=== PATIENT | male | born 1950 | race African-American/Black ===

== ENCOUNTER 2017-09-25 20:03 | Emergency (ER) | payer MEDICARE, MEDICAID ==
[2017-09-25] MEDS ORDERED: INSULIN,ISOP(HUMAN(NPH) 100 UNITS/ML PEN SUBCU ONE (21:22)
[2017-09-25] MEDS ORDERED: INSULIN LISPRO 100 UNITS/ML PEN SUBCU ONE (21:23)
[2017-09-25] MEDS ORDERED: SODIUM CHLORIDE 0.9% 1000ML 1,000 ML IVS ONE (21:51)
[2017-09-25] MEDS ORDERED: MEROPENEM 1 GM in SODIUM CHL 0.9% 50ML MIN-BAG+ 50 ML IVPB ONE (21:51)
[2017-09-25] MEDS ORDERED: MEROPENEM 1 GM VIAL IVPB ONE (21:53)
[2017-09-25] MEDS ORDERED: SODIUM CHL 0.9% 50ML MIN-BAG+ 50 ML IVPB ONE (21:53)
--- NOTE | 2017-09-25 23:33 | CT ---
EXAM DESCRIPTION: Abdoment/Pelvis w/o Contrast (accession [id number]), Chest w/o Contrast (accession [id number]) CLINICAL HISTORY: 67 years Male s/p code, wbc 20k, hypoventilation COMPARISON: None. TECHNIQUE: Contiguous axial images obtained through the chest, abdomen and pelvis without IV contrast. Reformatted images obtained. This exam was performed according to our department optimization program which includes automated exposure control, adjustment of the mA and/or kv according to patient size and/or use of iterative reconstruction technique. FINDINGS: Chest: The thoracic aorta is calcified and mildly elongated. Calcification is present in the coronary vessels. No evidence of pericardial fluid. No significant anterior mediastinal hematoma. There are groundglass densities bilaterally with atelectasis in the lower lobes and in the base of the right middle lobe. Question small effusions. Study is limited by motion. No significant thoracic adenopathy. Tracheostomy tube in place. No displaced rib fracture noted. No sternal or manubrial fracture. Multilevel degenerative change in the spine. Previous fusion in the cervicothoracic spine. Abdomen pelvis: The liver appears unremarkable. The spleen and pancreas appear unremarkable. No adrenal masses. There are nonobstructing renal calculi on the right. Incompletely distended urinary bladder. No hydronephrosis or obstructive uropathy. The gallbladder is present with numerous calculi noted. No aneurysmal dilatation of the aorta. No evidence of small bowel obstruction. There is a large volume of fecal material in the colon particularly in the rectosigmoid suggesting impaction. No evidence to suggest perforation. Stomach is also mildly distended. Sigmoid measures 12 cm cm. No free pelvic fluid. IMPRESSION: Patchy groundglass densities bilaterally with basilar atelectasis and probable small effusions. Findings may reflect edema or aspiration. Pneumonia is not excluded. No rib fracture or pneumothorax noted Vascular calcification Cholelithiasis Findings suggesting constipation and fecal impaction with significant distention of the sigmoid colon measuring 12 cm. Electronically signed by: Neli Ward MD 09/25/2017 11:32 PM CDT
[2017-09-25] MEDS ORDERED: HEPARIN SODIUM (PORCINE) 5,000 U/ML VIAL IV ONE (23:40)
--- NOTE | 2017-09-25 23:50 | CT ---
Prescribed normal brain EXAM: NONCONTRAST BRAIN CT EXAMINATION. CLINICAL INDICATION: Cardiac arrest. Patient intubated. COMPARISON: None. TECHNIQUE: Using low dose helical CT technique, thin section axial images were performed through the brain without the administration of intravenous or subarachnoid contrast material. FINDINGS: Brain volume is normal. No diffuse brain swelling or brain herniation. No hydrocephalus. No subdural or epidural hematomas. No large subacute brain infarction. No parenchymal brain hemorrhage or evidence of intracranial mass lesion. The brainstem and cerebellum are normal. Cerebral white matter is grossly normal. Normal for age bilateral pallidal calcification. Caudate heads, lentiform nuclei, thalami and internal capsules are normal. Bones of the skull and skull base are normal. Opacification of the middle ears and mastoid air cells. The partially visualized paranasal sinuses are clear. IMPRESSION: 1. Symmetric opacification of the middle ears and mastoid air cells. Otherwise, normal for age noncontrast brain CT examination. This exam was performed according to our departmental dose-optimization program, which includes automated exposure control, adjustment of the mA and/or kV according to patient size and/or use of iterative reconstruction technique. Electronically signed by: Jacobo Barrera MD 09/25/2017 11:49 PM CDT
[2017-09-25 23:56] VITALS: O2SAT 100
--- NOTE | 2017-09-25 23:58 | ED.PDOC ---
History of Present Illness - General Chief Complaint: Neuro Symptoms/Deficits Stated Complaint: unresponsive FIELD ARTILL[facility] CANNONEER Time Seen by Provider: 09/25/17 20:10 Source: patient Exam Limitations: no limitations - History of Present Illness Initial Comments: The patient is a 67-year-old -[place] male presented to the emergency room by EMS after having undergone CPR for a cardiorespiratory arrest. The patient is a resident of a long-term ventilator care facility. The patient has actually been off of the ventilator simply on a trach collar for the last couple of months apparently. The patient has a history of a Chiari malformation giving him quadriplegia. He is normally alert and oriented and able to mouth what he wants to communicate. He's also has a history of insulin- dependent diabetes and chronic anemia. He does also have a history of chronic decubitus ulcers. Apparently staff coming to give tube feeds found him unresponsive, not breathing and without a pulse. Chest compressions were started and the patient was started being bagged through his tracheostomy. By the time EMS arrived the patient was alert and interacting. His oxygen saturations were in the 90s. Initially when [facility] staff had gotten a pulse back, his initial oxygen saturations were in the 70s. He was not on a heart monitor. No drugs or electrical shocks were delivered. The patient did not remember the event. EMS brought the patient o the emergency room. For the first 30-40 minutes his end-tidal CO2's were up in the 70s and 80s. We did give the patient trial of CPAP which did not improve the situation. Initially also his respiratory rates were in the 30s but his breaths were very shallow only giving 100 or 200 cc per breath when unsupported. Ultimately we did put the patient back on ventilator settings which did allow his work of breathing to decrease significantly, and his endtidals have fallen into the 40s. The patient is currently resting comfortably without any apparent discomfort. Initial ABG obtained approximately 40 minutes after arrival here secondary to difficulty obtaining it, was actually a mixed venous gas showing a pH of 7.18. PaCO2 was 75. We have had no difficulty oxygenating him since his arrival here. The patient is easily arousable. Again he does not remember the events. He does not remember any significant symptoms prior. He was in normal sinus rhythm for EMS and has remained so throughout his stay here. Timing/Duration: unsure Severity: severe Improving Factors: nothing Worsening Factors: nothing Allergies/Adverse Reactions: Allergies Codeine Allergy (Verified 09/25/17 20:27) Flu Virus Vaccine Allergy (Verified 09/25/17 20:27) Home Medications: Ambulatory Orders Acetylcysteine 10 % IN 09/25/17 Ascorbic Acid [Vitamin C] 250 mg PO 09/25/17 Aspirin [Aspirin Childrens] 09/25/17 Atorvastatin Calcium [Lipitor] 40 mg PO 09/25/17 Atropine Sulfate (Ophthalmic) [Atropine Sulfate] 09/25/17 Balsam [place]-Trade Oil [Venelex] 09/25/17 Brimonidine 0.2% Ophth [Alphagan P] 1 drop BOTH_EYES 09/25/17 Cranberry-Vitamin C-Inulin [Uti-Stat] 1 liq PO 09/25/17 Cyanocobalamin [B12] 1,000 mcg PO 09/25/17 Docusate Sodium 100 mg PO 09/25/17 Famotidine 10 mg PO 09/25/17 Ferrous Sulfate [Iron High-Potency] 325 mg PO 09/25/17 Folic Acid 1 mg PO 09/25/17 Insulin NPH (Human) (Isophane) [Humulin N] 120 unit SC 09/25/17 Insulin Regular (Human) [Humulin R] 09/25/17 Ipratropium-Albuterol [Ipratropium [place]/Albut] 09/25/17 Lactobacillus Tab [Lactinex] 1 PO 09/25/17 Miconazole Nitrate (Topical) [Tineacide] 2 % EX 09/25/17 Pancrelipase (Lipase-Protease- [Creon] 1 cap PO 09/25/17 Polyethylene Glycol 3350 [Miralax] 09/25/17 Promethazine HCl 25 mg PO 09/25/17 SILVER SULFADIAZINE 1 % 25gm [Silvadene Cream 25gm] 09/25/17 Scopolamine Patch 1.5MG 09/25/17 Simethicone [Gas-X] 80 mg PO 09/25/17 Tolterodine Tartrate [Detrol LA] 2 mg PO 09/25/17 Tramadol HCl 50 mg PO 09/25/17 Travoprost [Travatan Z] 0.004 % OP 09/25/17 Review of Systems - Review of Systems Review of Systems: 09/26/17 00:16 eview of systems is somewhat limited secondary to difficulty with communication , but are also for new or changing symptoms only. 09/26/17 00:17 Constitutional: States: no symptoms reported EENTM: States: no symptoms reported Respiratory: States: no symptoms reported Cardiology: States: no symptoms reported Gastrointestinal/Abdominal: States: no symptoms reported Genitourinary: States: no symptoms reported Musculoskeletal: States: no symptoms reported Skin: States: no symptoms reported Neurological: States: no symptoms reported Endocrine: States: no symptoms reported All other Systems: No Change from Baseline Past Medical History (General) - Patient Medical History Hx Stroke: Yes Hx of COPD: Yes Hx Diabetes: Yes Hx Gastroesophageal Reflux: Yes - Vaccination History Hx Influenza Vaccination: No - allergic to - Activities of Daily Living Alf/Assisted Living (if applicable):: [facility] - Triage Comment ED Triage Comment: pt responds upon arrival, eyes open Family Medical History - Family History Father Family History: Unknown Physical Exam - Physical Exam General Appearance: Alert, Other - the patient appears uncomfortable initially showing a moderate increasedwork of breathing Eye Exam: bilateral normal Ears, Nose, Throat: normal pharynx, other - he does appear to hear fairly normally Neck: full range of motion, supple - tracheostomy is in place Respiratory: other - the patient is initially to Make with shallow breathing. He does have bilateral bibasilar rales as would be expected for his condition Cardiovascular/Chest: regular rate, rhythm, no edema Peripheral Pulses: radial,right: 1+, radial,left: 1+, dorsalis pedis,right: 1+, dorsalis pedis,left: 1+ Gastrointestinal/Abdominal: soft, other - obese. G-tube is in place. Rectal Exam: other - the patient has had several episodes of green diarrhea since his arrival here. He also has several posterior decubitus ulcers of various stages. Back Exam: other - see above Extremity: other - he patient has contractures in all 4 extremities. He does still have some muscle control of his proximal arms. There is fairly extensive callus buildup. No significant edema. Neurologic: shake cutter II-XII nml as tested, alert, normal mood/affect Skin Exam: normal color - extensive callus buildup and several posterior decubitus ulcers. Color is fair otherwise. Comments: Vital Signs - 24 hr 09/25/17 09/25/17 09/25/17 20:14 22:06 23:00 Temperature 96.8 F L Pulse Rate [ 110 H 84 87 Right] Respiratory 25 H 14 Rate Blood Pressure 111/69 123/62 119/58 [Right Arm] O2 Sat by Pulse 99 100 99 Oximetry 09/25/17 23:30 Temperature 97.8 F Pulse Rate [ 80 Right] Respiratory Rate Blood Pressure 143/73 [Right Arm] O2 Sat by Pulse 100 Oximetry Progress - Progress Progress: 09/26/17 00:22 the patient is a 67-year-old Afro-[place] male presenting to the emergency room by EMS after a cardiac arrest and respiratory failure. The patient does have several problems including a significant catheter associated urinary tract infection, likely scattered pulmonary infiltrates consistent with a mild pneumonia as well as a significant mixed acidosis along with possible bilateral inner ear and mastoid process infections which may or may not be chronic. additionally the patient may have had a mild myocardial infarction. the primary issue with the patient given his clinical evaluation here I believe however his hypoventilation. the events of today, lab work and EKG do appear to be consistent with the patient suffering some hypoxia and hypoventilation for a subacute period of time. He will need to have cardiac enzymes repeated. Based on EKG I do not think the origin of his problem is a focal coronary disease however more likely global cardiac ischemia related to hypoxia. For this reason he is receiving a dose of IV heparin. I'm not giving additional Plavix and is not giving any lytics at this time. clinically he is resting comfortably currently. I do not see that his ST segment changes technically meet the criteria for an ST elevation myocardial infarction at this time, by any criteria that I can currently find. He will need further lab work EKG and possibly a cardiology consult. He does have an elevated d-dimer however, he did just get chest compressions. He does have an inferior vena cava filter. At the least, lower extremity Dopplers may be warranted on the patient and possibly upper extremity Dopplers. CT scan of the chest with IV contrast has not been done here today in order to preserve the renal function in case he needs direct angiography for his coronaries, in which case a pulmonary angiogram can be done around that time. The patient does have a significant urinary tract infection associated with an indwelling catheter. He is being given a dose of meropenem. Certainly antibiotic therapy may need to be targeted further for this as well as for the possibility of bilateral inner ear infections and possibly mastoid process infections. I'm uncertain of the chronicity of these processes. The patient does have a significant lactic acidosis and has received 1 L of IV fluid. He will need to have a repeat ABG performed to make sure his mostly respiratory acidosis has corrected. The patient has received a slightly decreased dose of his evening insulin. His blood sugars will need to be rechecked. He will of course need care for his posterior decubitus ulcers. The patient is being transferred for higher level of care. He will be kept on the ventilator for now. critical care time spent in management of this patient and his numerous current conditions along with arrangement for transfer and ongoing care as well as coordination with the [facility], excluding otherwise billable procedures is 55 minutes. 09/26/17 00:34 - Results/Orders Results/Orders: Laboratory Tests 09/25/17 09/25/17 09/25/17 21:00 21:00 21:00 WBC 21.0 H* RBC 3.05 L Hgb 8.9 L Hct 28.8 L MCV 94.3 H MCH 29.1 MCHC 30.9 L RDW 17.7 H Plt Count 172 MPV 9.9 Absolute Neuts (auto) Not Reportable Absolute Lymphs (auto) Not Reportable Absolute Monos (auto) Not Reportable Absolute Eos (auto) Not Reportable Neutrophils % Not Reportable Neutrophils % (Manual) 90.0 H Lymphocytes % Not Reportable Lymphocytes % (Manual) 4.0 Monocytes % Not Reportable Monocytes % (Manual) 6.0 Eosinophils % Not Reportable Basophils % Not Reportable Toxic Granulation 1+ Platelet Estimate Normal Anisocytosis 1+ Microcytosis 1+ PT 11.8 INR 1.020 PTT (SP) 29.0 D-Dimer, Quantitative 1051 H* Sodium 136 Potassium 5.5 H Chloride 100 L Carbon Dioxide 27 Anion Gap 14.5 BUN 48 H Creatinine 1.10 BUN/Creatinine Ratio 43.6 H Random Glucose 354 H Serum Osmolality 298.8 H Lactic Acid Calcium 10.2 Magnesium 2.3 Total Bilirubin 0.7 AST 31 ALT 21 Alkaline Phosphatase 132 H Creatine Kinase 131 CK-MB (CK-2) 13.1 H* CK-MB (CK-2) % Not Reportable Troponin I 0.08 H* B-Natriuretic Peptide 57.3 Serum Total Protein 7.9 Albumin 3.0 L Globulin 4.9 H Albumin/Globulin Ratio 0.6 L Urine Color Urine Appearance Urine pH Ur Specific [place] Urine Protein Urine Glucose (UA) Urine Ketones Urine Blood Urine Nitrite Urine Bilirubin Urine Urobilinogen Ur Leukocyte Esterase Urine RBC Urine WBC Ur Epithelial Cells Triple Phos Crystals Urine Bacteria Urine Mucus 09/25/17 09/25/17 09/25/17 21:00 21:00 21:40 WBC RBC Hgb Hct MCV MCH MCHC RDW Plt Count MPV Absolute Neuts (auto) Absolute Lymphs (auto) Absolute Monos (auto) Absolute Eos (auto) Neutrophils % Neutrophils % (Manual) Lymphocytes % Lymphocytes % (Manual) Monocytes % Monocytes % (Manual) Eosinophils % Basophils % Toxic Granulation Platelet Estimate Anisocytosis Microcytosis PT INR PTT (SP) D-Dimer, Quantitative Sodium Potassium Chloride Carbon Dioxide Anion Gap BUN Creatinine BUN/Creatinine Ratio Random Glucose Serum Osmolality Lactic Acid 4.8 H* Calcium Magnesium 2.2 Total Bilirubin AST ALT Alkaline Phosphatase Creatine Kinase CK-MB (CK-2) CK-MB (CK-2) % Troponin I B-Natriuretic Peptide Serum Total Protein Albumin Globulin Albumin/Globulin Ratio Urine Color Yellow Urine Appearance Cloudy Urine pH 8.5 H Ur Specific [place] 1.015 Urine Protein 100 H Urine Glucose (UA) Negative Urine Ketones Negative Urine Blood Small H Urine Nitrite Negative Urine Bilirubin Negative Urine Urobilinogen 0.2 Ur Leukocyte Esterase Large H Urine RBC >50 H Urine WBC Tntc H Ur Epithelial Cells 5-10 Triple Phos Crystals 2+ Urine Bacteria 4+ H Urine Mucus Small CT scan of the abdomen and pelvis without contrast shows constipation. CT scan of the chest without contrast shows patchy groundglass scattered densities in the lung gomez. He also has small effusions bilaterally. He also has bibasilar atelectasis. The patient does have a inferior vena cava filter. CT scan of the head shows opacification of the middle ears bilaterally as well as mastoid processes. I do not have a previous CT scan to compare to. No other obvious acute intracranial pathology. EKG shows a normal sinus rhythm at 85 bpm. The patient does have very mild ST segment elevation in leads 2, 3, aVF, V5 and 6. All of these elevations are less than 1 mm technically and rise. He does have a first-degree AV block. QT intervals within normal limits. Departure - Departure Clinical Impression: Cardiac arrest Acute respiratory failure Qualifiers: Respiratory failure complication: hypoxia and hypercapnia Qualified Code(s): J96.01 - Acute respiratory failure with hypoxia; J96.02 - Acute respiratory failure with hypercapnia Mastoiditis Qualifiers: Laterality: bilateral Qualified Code(s): H70.93 - Unspecified mastoiditis, bilateral Catheter-associated urinary tract infection Qualifiers: Indwelling urinary catheter type: indwelling urethral catheter Encounter type: initial encounter Qualified Code(s): T83.511A - Infection and inflammatory reaction due to indwelling urethral catheter, initial encounter; N39.0 - Urinary tract infection, site not specified Myocardial infarction Qualifiers: Involved coronary artery: unspecified coronary artery Disposition: Transfer to Hospital Home Medications: Ambulatory Orders Acetylcysteine 10 % IN 09/25/17 Ascorbic Acid [Vitamin C] 250 mg PO 09/25/17 Aspirin [Aspirin Childrens] 09/25/17 Atorvastatin Calcium [Lipitor] 40 mg PO 09/25/17 Atropine Sulfate (Ophthalmic) [Atropine Sulfate] 09/25/17 Balsam [place]-Trade Oil [Venelex] 09/25/17 Brimonidine 0.2% Ophth [Alphagan P] 1 drop BOTH_EYES 09/25/17 Cranberry-Vitamin C-Inulin [Uti-Stat] 1 liq PO 09/25/17 Cyanocobalamin [B12] 1,000 mcg PO 09/25/17 Docusate Sodium 100 mg PO 09/25/17 Famotidine 10 mg PO 09/25/17 Ferrous Sulfate [Iron High-Potency] 325 mg PO 09/25/17 Folic Acid 1 mg PO 09/25/17 Insulin NPH (Human) (Isophane) [Humulin N] 120 unit SC 09/25/17 Insulin Regular (Human) [Humulin R] 09/25/17 Ipratropium-Albuterol [Ipratropium [place]/Albut] 09/25/17 Lactobacillus Tab [Lactinex] 1 PO 09/25/17 Miconazole Nitrate (Topical) [Tineacide] 2 % EX 09/25/17 Pancrelipase (Lipase-Protease- [Creon] 1 cap PO 09/25/17 Polyethylene Glycol 3350 [Miralax] 09/25/17 Promethazine HCl 25 mg PO 09/25/17 SILVER SULFADIAZINE 1 % 25gm [Silvadene Cream 25gm] 09/25/17 Scopolamine Patch 1.5MG 09/25/17 Simethicone [Gas-X] 80 mg PO 09/25/17 Tolterodine Tartrate [Detrol LA] 2 mg PO 09/25/17 Tramadol HCl 50 mg PO 09/25/17 Travoprost [Travatan Z] 0.004 % OP 09/25/17 Transfer to Outside Facility - Transfer Information Accepting Provider:: dr bolaños Accepting Facility: [facility] Reason for Transfer: ICU
[2017-09-26 01:24] VITALS: BP 160/74; TEMP 98.4
== END 2017-09-26 01:00 | disposition short-term general hospital (02) ==
LOC: ER 20:03
DX: J96.01 Acute respiratory failure with hypoxia (principal); J96.02 Acute respiratory failure with hypercapnia; H70.93 Unspecified mastoiditis, bilateral; T83.511A Infection and inflammatory reaction due to indwelling urethral catheter, initial encounter; N39.0 Urinary tract infection, site not specified; I21.9 Acute myocardial infarction, unspecified; I44.0 Atrioventricular block, first degree; J44.9 Chronic obstructive pulmonary disease, unspecified; E11.9 Type 2 diabetes mellitus without complications; K21.9 Gastro-esophageal reflux disease without esophagitis; Z86.73 Personal history of transient ischemic attack (TIA), and cerebral infarction without residual deficits; Z79.82 Long term (current) use of aspirin; Z79.4 Long term (current) use of insulin
CPT/HCPCS: 36415; 36600; 70450; 71250; 74176; 80053; 81001; 82550; 82553; 82803; 82805; 83605; 83735; 83880; 84484; 85025; 85379; 85610; 85730; 87086; 87324; 87449; 93005; 94002; 94770; J1644; J1815; J2185; J7030; J7050

== ENCOUNTER 2018-04-10 14:30 | Emergency (ER) | payer MEDICARE, MEDICAID ==
--- NOTE | 2018-04-10 14:56 | ED.PDOC ---
History of Present Illness - General Chief Complaint: General Stated Complaint: vomiting blood Time Seen by Provider: 04/10/18 14:45 Source: patient, EMS Exam Limitations: other - Pt has tracheostomy and can"t vocalize - History of Present Illness Initial Comments: Pt vomited x 1 this am. Pt denies nausea now. Timing/Duration: 4-6 hours Severity: mild Improving Factors: nothing Worsening Factors: nothing Associated Symptoms: denies symptoms Allergies/Adverse Reactions: Allergies Codeine Allergy (Verified 09/25/17 20:27) Flu Virus Vaccine Allergy (Verified 09/25/17 20:27) Home Medications: Ambulatory Orders Acetylcysteine 10 % IN 09/25/17 Ascorbic Acid [Vitamin C] 250 mg PO 09/25/17 Aspirin [Aspirin Childrens] 09/25/17 Atorvastatin Calcium [Lipitor] 40 mg PO 09/25/17 Atropine Sulfate (Ophthalmic) [Atropine Sulfate] 09/25/17 Balsam [place] Oil [Venelex] 09/25/17 Brimonidine 0.2% Ophth [Alphagan P] 1 drop BOTH_EYES 09/25/17 Cranberry-Vitamin C-Inulin [Uti-Stat] 1 liq PO 09/25/17 Cyanocobalamin [B12] 1,000 mcg PO 09/25/17 Docusate Sodium 100 mg PO 09/25/17 Famotidine 10 mg PO 09/25/17 Ferrous Sulfate [Iron High-Potency] 325 mg PO 09/25/17 Folic Acid 1 mg PO 09/25/17 Insulin NPH (Human) (Isophane) [Humulin N] 120 unit SC 09/25/17 Insulin Regular (Human) [Humulin R] 09/25/17 Ipratropium-Albuterol [Ipratropium [place]/Albut] 09/25/17 Lactobacillus Tab [Lactinex] 1 PO 09/25/17 Miconazole Nitrate (Topical) [Tineacide] 2 % EX 09/25/17 Pancrelipase (Lipase-Protease- [Creon] 1 cap PO 09/25/17 Polyethylene Glycol 3350 [Miralax] 09/25/17 Promethazine HCl 25 mg PO 09/25/17 SILVER SULFADIAZINE 1 % 25gm [Silvadene Cream 25gm] 09/25/17 Scopolamine Patch 1.5MG 09/25/17 Simethicone [Gas-X] 80 mg PO 09/25/17 Tolterodine Tartrate [Detrol LA] 2 mg PO 09/25/17 Tramadol HCl 50 mg PO 09/25/17 Travoprost [Travatan Z] 0.004 % OP 09/25/17 Review of Systems - Review of Systems Constitutional: States: fever. Denies: chills EENTM: Denies: nose congestion, throat pain Respiratory: Denies: cough, short of breath Cardiology: Denies: chest pain Gastrointestinal/Abdominal: Denies: abdominal pain, diarrhea, nausea Genitourinary: States: no symptoms reported Musculoskeletal: States: no symptoms reported Skin: States: no symptoms reported Neurological: States: no symptoms reported Past Medical History (General) - Patient Medical History Hx Stroke: Yes Hx of COPD: Yes Hx Diabetes: Yes Hx Gastroesophageal Reflux: Yes Hx Other - free text: Quadriplegia Other Surgeries:: gastrostomy, tracheostomy - Vaccination History Hx Influenza Vaccination: No - allergic to Family Medical History - Family History Father Family History: Unknown Physical Exam - Physical Exam General Appearance: Alert, Comfortable, No apparent distress Eye Exam: bilateral normal Ears, Nose, Throat: hearing grossly normal, normal ENT inspection Neck: non-tender, other - tracheostomy has no drainage or blood Respiratory: chest non-tender, lungs clear, normal breath sounds Cardiovascular/Chest: regular rate, rhythm Gastrointestinal/Abdominal: normal bowel sounds, non tender, soft Extremity: no pedal edema Neurologic: alert, normal mood/affect, other - Quadriplegia Skin Exam: normal color, warm/dry Progress - EKG/XRAY/CT EKG: Sinus, Tachy, no ST T wave changes Comments: ; rate 110, TX 230, QRS 72 Departure - Departure Clinical Impression: Hyperkalemia, Acute kidney injury, Hyperglycemia due to type 1 diabetes mellitus Sepsis Qualifiers: Sepsis type: sepsis due to unspecified organism Qualified Code(s): A41.9 - Sepsis, unspecified organism UTI (urinary tract infection) Qualifiers: Urinary tract infection type: catheter-associated UTI Indwelling urinary catheter type: indwelling urethral catheter Encounter type: initial encounter Qualified Code(s): T83.511A - Infection and inflammatory reaction due to indwelling urethral catheter, initial encounter GI bleeding Qualifiers: GI bleed type/associated pathology: melena Qualified Code(s): K92.1 - Melena Disposition: Transfer to Hospital Condition: Fair Departure Forms: ED Discharge - Pt. Copy, Patient Portal Self Enrollment Home Medications: Ambulatory Orders Acetylcysteine 10 % IN 09/25/17 Ascorbic Acid [Vitamin C] 250 mg PO 09/25/17 Aspirin [Aspirin Childrens] 09/25/17 Atorvastatin Calcium [Lipitor] 40 mg PO 09/25/17 Atropine Sulfate (Ophthalmic) [Atropine Sulfate] 09/25/17 Balsam [place] Oil [Venelex] 09/25/17 Brimonidine 0.2% Ophth [Alphagan P] 1 drop BOTH_EYES 09/25/17 Cranberry-Vitamin C-Inulin [Uti-Stat] 1 liq PO 09/25/17 Cyanocobalamin [B12] 1,000 mcg PO 09/25/17 Docusate Sodium 100 mg PO 09/25/17 Famotidine 10 mg PO 09/25/17 Ferrous Sulfate [Iron High-Potency] 325 mg PO 09/25/17 Folic Acid 1 mg PO 09/25/17 Insulin NPH (Human) (Isophane) [Humulin N] 120 unit SC 09/25/17 Insulin Regular (Human) [Humulin R] 09/25/17 Ipratropium-Albuterol [Ipratropium [place]/Albut] 09/25/17 Lactobacillus Tab [Lactinex] 1 PO 09/25/17 Miconazole Nitrate (Topical) [Tineacide] 2 % EX 09/25/17 Pancrelipase (Lipase-Protease- [Creon] 1 cap PO 09/25/17 Polyethylene Glycol 3350 [Miralax] 09/25/17 Promethazine HCl 25 mg PO 09/25/17 SILVER SULFADIAZINE 1 % 25gm [Silvadene Cream 25gm] 09/25/17 Scopolamine Patch 1.5MG 09/25/17 Simethicone [Gas-X] 80 mg PO 09/25/17 Tolterodine Tartrate [Detrol LA] 2 mg PO 09/25/17 Tramadol HCl 50 mg PO 09/25/17 Travoprost [Travatan Z] 0.004 % OP 09/25/17 Critical Care Note - Critical Care Note Total Time (mins): 45 Comments: Event: Vomited Blood; Findings: Anemia with Guaiac positive melanotic stool; Leukocytosis; Hyperkalemia; acute Kidney Injury; UTI; Possible infiltrate to RLL lung; hyperglycemia Actions: IV D50 IV with regular insulin 10 units iv, IV Calcium Gluconate; iv sodium Bicarb; blood cultures x 2 and iv Cefepime 2 grams Transferred to [facility] , Dr Robert Carmen accepted pt
--- NOTE | 2018-04-10 15:13 | RAD ---
EXAM DESCRIPTION: Chest,1 View CLINICAL HISTORY: 68 years Male, r/o pneumonia COMPARISON: None. TECHNIQUE: AP portable chest. FINDINGS: Single view of the chest demonstrates prior fixation of the cervicothoracic junction of the spine. The aorta is tortuous and calcified. Heart size and vascularity is in the upper range of normal. The left lung is essentially clear. There is pleural blunting at the right lateral lung base and a suggestion of mild atelectasis or infiltrate at the right lung base. IMPRESSION: Abnormal right lung base with pleural blunting and either mild atelectasis or patchy bronchopneumonia at the right lung base. Electronically signed by: Brad De La Paz MD 04/10/2018 3:12 PM [facility]
[2018-04-10] MEDS ORDERED: SODIUM BICARBONATE SYRINGE 50 MEQ/50 ML SYG IV ONE (16:36)
[2018-04-10] MEDS ORDERED: CALCIUM GLUCONATE INJ 1 GM in SODIUM CHLORIDE 0.9% 50ML 50 ML IVPB ONE (16:42)
[2018-04-10] MEDS ORDERED: DEXTROSE 50% 25 GM/50 ML SYG IV ONE (16:43)
[2018-04-10] MEDS ORDERED: INSULIN, REG.(HUMAN) 100 U/ML VIAL IV ONE (16:43)
[2018-04-10] MEDS ORDERED: SODIUM CHLORIDE 0.9% 50ML 50 ML ONE (17:01)
[2018-04-10] MEDS ORDERED: CALCIUM GLUCONATE INJ 1 GM/10 ML VIAL ONE (17:01)
[2018-04-10] MEDS ORDERED: CEFEPIME 2 GM in SODIUM CHL 0.9% 50ML MIN-BAG+ 50 ML IVPB ONE (17:19)
[2018-04-10] MEDS ORDERED: SODIUM CHLORIDE 0.9% 1000ML 1,000 ML IVS ONE (17:33)
[2018-04-10] MEDS ORDERED: levoFLOXacin 500MG IV 500 MG in PREMIX BAG 1 BAG IVPB ONE (17:33)
[2018-04-10] MEDS ORDERED: cefTRIAXone SODIUM 2 GM in SODIUM CHL 0.9% 100ML MINI-BAG 100 ML IVPB ONE (17:33)
[2018-04-10] MEDS ORDERED: ACETAMINOPHEN 500 MG TAB PO ONE (17:33)
[2018-04-10] MEDS ORDERED: SODIUM CHL 0.9% 100ML MINI-BAG 100 ML IVPB ONE (18:07)
[2018-04-10] MEDS ORDERED: levoFLOXacin 500MG IV 100 ML IVPB ONE (18:42)
[2018-04-10 22:17] VITALS: O2SAT 98
[2018-04-10 22:22] VITALS: BP 92/64; TEMP 100.2
== END 2018-04-10 22:00 | disposition short-term general hospital (02) ==
LOC: ER 14:30
DX: A41.9 Sepsis, unspecified organism (principal); T83.511A Infection and inflammatory reaction due to indwelling urethral catheter, initial encounter; N17.9 Acute kidney failure, unspecified; K92.1 Melena; E87.5 Hyperkalemia; E10.65 Type 1 diabetes mellitus with hyperglycemia; K92.0 Hematemesis; G82.50 Quadriplegia, unspecified; R00.0 Tachycardia, unspecified; K21.9 Gastro-esophageal reflux disease without esophagitis; J44.9 Chronic obstructive pulmonary disease, unspecified; Z93.0 Tracheostomy status; Z93.1 Gastrostomy status; Z86.73 Personal history of transient ischemic attack (TIA), and cerebral infarction without residual deficits; Z79.4 Long term (current) use of insulin; Z79.899 Other long term (current) drug therapy; Z79.82 Long term (current) use of aspirin; Z88.7 Allergy status to serum and vaccine; Z88.5 Allergy status to narcotic agent
CPT/HCPCS: 36415; 71045; 80053; 81001; 82270; 83605; 85025; 85379; 85610; 85730; 87040; 87077; 87086; 87186; 93005; 94002; A4216; J0696; J1956; J2060; J7030; J7050; J7799

== ENCOUNTER → 2019-02-04 | Outpatient (CLI) | payer MEDICARE, MEDICAID | LOC: GOCC 16:19 | PROVIDERS: ATTEND Internal Medicine Gastroenterology | DX: R30.0 Dysuria (principal) ==

== ENCOUNTER 2019-02-18 14:12 | Emergency (ER) | payer MEDICARE, MEDICAID ==
[2019-02-18] MEDS ORDERED: IPRATROPIUM/ALBUTEROL 3 ML VIAL NEB ONE (14:33)
[2019-02-18] MEDS ORDERED: ACETYLCYSTEIN 20 % 6,000 MG/30 ML VIAL NEB ONE (14:33)
[2019-02-18 14:50] VITALS: O2SAT 100
--- NOTE | 2019-02-18 14:55 | RAD ---
EXAM: Chest,1 View CLINICAL INDICATION: Shortness of breath COMPARISON: 04/14/2018 FINDINGS: A single view of the chest was obtained. The heart size is mildly enlarged. The pulmonary vascularity is mildly prominent. There is an ET tube with its tip above the level of the clavicles. Suggest advancing the tube 3 cm. The lungs are clear. Incidentally noted are surgical changes in the cervical spine. IMPRESSION: 1. Suggest advancing the ET tube 3 cm. 2. Findings suggesting mild or borderline CHF. Electronically signed by: Candido Sparks MD 02/18/2019 2:53 PM CDT
[2019-02-18] MEDS ORDERED: metOLazone 2.5 MG TAB PO ONE (15:28)
[2019-02-18] MEDS ORDERED: FUROSEMIDE INJ 40 MG/4 ML VIAL IV ONE (15:28)
[2019-02-18] MEDS ORDERED: SODIUM CHLORIDE 0.9% 1000ML 500 ML IVS ONE ×2 (15:31→19:27)
[2019-02-18] MEDS ORDERED: SOD POLYSTYRENE SULFONATE 15 GM/60 ML BTTL GT ONE (16:30)
[2019-02-18] MEDS ORDERED: levoFLOXacin 500MG IV 500 MG in PREMIX BAG 1 BAG IVPB ONE (17:26)
[2019-02-18] MEDS ORDERED: levoFLOXacin 500MG IV 100 ML IVPB ONE (17:47)
--- NOTE | 2019-02-18 19:33 | ED.PDOC ---
History of Present Illness - General Chief Complaint: Respiratory Problem Time Seen by Provider: 02/18/19 14:12 Source: patient Exam Limitations: clinical condition - History of Present Illness Initial Comments: the patient is a 69-year-old -[place] male brought in by EMS secondary to shortness of breath. The patient had apparently had an increased work of breathing for the last hour or 2. He had been receiving breathing treatments. Shortly after arrival here a respiratory therapist was able to get out a large mucous plug. After which the patient started breathing much more easily. He does have coarse rhonchi bilaterally. There does appear to be good air movement in all lung gomez. no definite fever. Urine is very coarse and thick.the patient is apparently a little more confused than normal this morning as well. Timing/Duration: unsure Severity: moderate Improving Factors: nothing Worsening Factors: nothing Associated Symptoms: cough, malaise, shortness of breath Allergies/Adverse Reactions: Allergies Codeine Allergy (Verified 09/25/17 20:27) Flu Virus Vaccine Allergy (Verified 09/25/17 20:27) Home Medications: Ambulatory Orders Ascorbic Acid [Vitamin C] 500 mg GT DAILY 09/25/17 Atropine Sulfate (Ophthalmic) [Atropine Sulfate] 2 drop SL Q4HR PRN 09/25/17 Docusate Sodium 100 mg GT BID PRN 09/25/17 Famotidine 20 mg GT DAILY 09/25/17 Folic Acid 1 mg GT DAILY 09/25/17 Polyethylene Glycol 3350 [Miralax] 17 gm GT DAILY PRN 09/25/17 Promethazine HCl 25 mg GT Q6HR PRN 09/25/17 Simethicone [Gas-X] 80 mg GT TID 09/25/17 Tramadol HCl 25 mg GT Q12HR PRN 09/25/17 Travoprost [Travatan Z] 0.004 % OP BEDTIME 09/25/17 Dorzolamide HCl-Timolol Maleat [Cosopt 22.3-6.8 mg/ml] 1 fabiano OP BID 02/18/19 Furosemide [Lasix] 20 mg GT DAILY 02/18/19 Gabapentin 300 mg GT BID 02/18/19 Hydrochlorothiazide 25 mg GT DAILY #14 tab 02/18/19 Insulin Detemir [Levemir] 44 unit SUBCU BID 02/18/19 Insulin Lispro [HumaLOG] 0 unit SUBCU AC 02/18/19 Ipratropium/Albuterol [Duoneb] 3 ml INH Q6HR 02/18/19 Lidocaine 1% 2 ml [Xylocaine] 2 ml INH Q6HR PRN 02/18/19 Loratadine 10 mg GT BEDTIME 02/18/19 Scopolamine [Transderm-Scop] 1 mg TD Q3D 02/18/19 levoFLOXacin [Levaquin] 500 mg GT DAILY #7 tab 02/18/19 Review of Systems - Review of Systems Review of Systems: 02/18/19 19:33 very limited due to patient's limited ability to communicate. Constitutional: States: malaise EENTM: States: no symptoms reported Respiratory: States: cough, short of breath Cardiology: States: no symptoms reported Gastrointestinal/Abdominal: States: no symptoms reported Genitourinary: States: no symptoms reported Musculoskeletal: States: see HPI Neurological: States: see HPI Endocrine: States: no symptoms reported All other Systems: No Change from Baseline Past Medical History (General) - Patient Medical History Hx Stroke: Yes Hx of COPD: Yes Hx Diabetes: Yes Hx Gastroesophageal Reflux: Yes - Vaccination History Hx Influenza Vaccination: No - Activities of Daily Living Alf/Assisted Living (if applicable):: [facility] Family Medical History - Family History Father Family History: Unknown Physical Exam - Physical Exam General Appearance: Alert - but he does seem confused., Frail Eye Exam: bilateral normal Ears, Nose, Throat: hearing grossly normal, normal ENT inspection Neck: full range of motion - tracheostomy is in place. Respiratory: rhonchi - coarse rhonchi bilaterally. Scattered wheezes.he is ventilator dependent. Cardiovascular/Chest: normal peripheral pulses, regular rate, rhythm, no edema Peripheral Pulses: radial,right: 2+, radial,left: 2+, dorsalis pedis,right: 2+, dorsalis pedis,left: 2+ Gastrointestinal/Abdominal: non tender, soft, other - G-tube is in place. 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 He does have significant contracturesof the hands with significant thickening of the skin. Neurologic: alert, disoriented x 3 Skin Exam: other - the patient does have some sores between his toes as well as to the lateral aspect of the right lower extremity. There appears to be an excoriated area around the sacrum. Comments: Vital Signs - 24 hr 02/18/19 02/18/19 02/18/19 14:48 15:12 15:20 Temperature 98.7 F Pulse Rate 92 H Pulse Rate [ 96 H 89 right brachial] Respiratory 20 24 22 Rate Respiratory 15 Rate [Volume Control Data] Blood Pressure 102/73 133/82 [right brachial ] O2 Sat by Pulse 100 100 100 Oximetry 02/18/19 02/18/19 02/18/19 16:00 17:00 17:30 Temperature 98.4 F Pulse Rate Pulse Rate [ 93 H 89 right brachial] Respiratory 14 15 Rate Respiratory 22 Rate [Volume Control Data] Blood Pressure 189/104 160/106 [right brachial ] O2 Sat by Pulse 100 100 Oximetry 02/18/19 18:00 Temperature Pulse Rate Pulse Rate [ 83 right brachial] Respiratory 15 Rate Respiratory Rate [Volume Control Data] Blood Pressure 121/82 [right brachial ] O2 Sat by Pulse 100 Oximetry Progress - Progress Progress: 02/18/19 19:38 the patient is a 69-year-old male presenting to emergency room secondary to respiratory difficulty and distress. This appears to been due to a mucous plug, as once this was removed the respiratory distress ceased. the patient would have been transferred back to his facility sooner however we did incidentally find moderately elevated potassium of 5.8 and a urinary tract infection. He has been started on Levaquin for urinary tract infection and will be written for 7 days of it. The patient received Kayexalate as well as diuretic doses and small fluid boluses for the hyperkalemia. Potassium has improved down to 5.3. He appears to be asymptomatic from the elevated potassium at this time and this does not appear to be his first time with an elevated potassium. I'm going to additionally write him for hydrochlorothiazide on a daily basis to hopefully help prevent recurrence of the hyperkalemia. He does need to have another potassium level checked towards the end of the week. Urine will be cultured. He does need to have nebulizer treatments at least twice daily and as needed. ER warnings were given for any worsening. 02/18/19 19:43 mary jo vu [id number] - Results/Orders Results/Orders: chest x-ray shows no definitive pneumonia. No pneumothorax. EKG shows normal sinus rhythm at 83 bpm. Normal axis. No definitive ST segment or T-wave changes indicative of acute ischemia. Normal R-wave progression. He does have a first-degree AV block. Normal QT interval. Laboratory Tests 02/18/19 02/18/19 02/18/19 14:35 14:45 14:45 WBC 9.4 RBC 4.07 L Hgb 12.0 L Hct 37.4 L MCV 92.1 MCH 29.4 MCHC 32.0 L RDW 17.4 H Plt Count 184 MPV 9.6 Absolute Neuts (auto) 6.60 Absolute Lymphs (auto) 2.00 Absolute Monos (auto) 0.50 Absolute Eos (auto) 0.10 Absolute Basos (auto) 0.10 Neutrophils % 70.3 Lymphocytes % 21.7 Monocytes % 5.3 Eosinophils % 1.3 Basophils % 1.4 PT INR PTT (SP) Sodium 135 Potassium 5.8 H Chloride 110 Carbon Dioxide 16 L Anion Gap 14.8 BUN 29 H Creatinine 1.38 H BUN/Creatinine Ratio 21.0 H Random Glucose 150 H Serum Osmolality 278.8 Lactic Acid Calcium 9.2 Magnesium 2.2 Total Bilirubin 0.4 AST 24 ALT 30 Alkaline Phosphatase 197 H Creatine Kinase 60 CK-MB (CK-2) 3.3 CK-MB (CK-2) % Not Reportable Troponin I 0.02 B-Natriuretic Peptide 59.6 Serum Total Protein 8.6 H Albumin 3.3 Globulin 5.3 H Albumin/Globulin Ratio 0.6 L Urine Color Yellow Urine Appearance Cloudy Urine pH 7.0 Ur Specific [place] 1.025 Urine Protein >=300 H Urine Glucose (UA) Negative Urine Ketones Negative Urine Blood Moderate H Urine Nitrite Negative Urine Bilirubin Negative Urine Urobilinogen 0.2 Ur Leukocyte Esterase Small H Urine RBC 10-20 H Urine WBC 10-20 H Ur Epithelial Cells 0 Urine Bacteria 3+ H 02/18/19 02/18/19 02/18/19 14:45 14:45 18:41 WBC RBC Hgb Hct MCV MCH MCHC RDW Plt Count MPV Absolute Neuts (auto) Absolute Lymphs (auto) Absolute Monos (auto) Absolute Eos (auto) Absolute Basos (auto) Neutrophils % Lymphocytes % Monocytes % Eosinophils % Basophils % PT 10.0 INR 1.00 PTT (SP) 35.2 H Sodium 135 Potassium 5.3 H Chloride 110 Carbon Dioxide 15 L Anion Gap 15.3 BUN 30 H Creatinine 1.37 H BUN/Creatinine Ratio 21.9 H Random Glucose 146 H Serum Osmolality 278.9 Lactic Acid 0.9 Calcium 9.0 Magnesium Total Bilirubin AST ALT Alkaline Phosphatase Creatine Kinase CK-MB (CK-2) CK-MB (CK-2) % Troponin I B-Natriuretic Peptide Serum Total Protein Albumin Globulin Albumin/Globulin Ratio Urine Color Urine Appearance Urine pH Ur Specific [place] Urine Protein Urine Glucose (UA) Urine Ketones Urine Blood Urine Nitrite Urine Bilirubin Urine Urobilinogen Ur Leukocyte Esterase Urine RBC Urine WBC Ur Epithelial Cells Urine Bacteria Departure - Departure Clinical Impression: Respiratory distress, acute, Mucus plugging of bronchi, Hyperkalemia UTI (urinary tract infection) due to urinary indwelling catheter Qualifiers: Indwelling urinary catheter type: cystostomy catheter Encounter type: initial encounter Qualified Code(s): T83.510A - Infection and inflammatory reaction due to cystostomy catheter, initial encounter; N39.0 - Urinary tract infection, site not specified Disposition: Discharge to [facility] Condition: Poor Departure Forms: ED Discharge - Pt. Copy, Patient Portal Self Enrollment Instructions: Hyperkalemia (DC), Urinary Tract Infection, Adult (DC) Diet: other Activity: other Prescriptions: Hydrochlorothiazide 25 mg GT DAILY #14 tab levoFLOXacin [Levaquin] 500 mg GT DAILY #7 tab Home Medications: Ambulatory Orders Ascorbic Acid [Vitamin C] 500 mg GT DAILY 09/25/17 Atropine Sulfate (Ophthalmic) [Atropine Sulfate] 2 drop SL Q4HR PRN 09/25/17 Docusate Sodium 100 mg GT BID PRN 09/25/17 Famotidine 20 mg GT DAILY 09/25/17 Folic Acid 1 mg GT DAILY 09/25/17 Polyethylene Glycol 3350 [Miralax] 17 gm GT DAILY PRN 09/25/17 Promethazine HCl 25 mg GT Q6HR PRN 09/25/17 Simethicone [Gas-X] 80 mg GT TID 09/25/17 Tramadol HCl 25 mg GT Q12HR PRN 09/25/17 Travoprost [Travatan Z] 0.004 % OP BEDTIME 09/25/17 Dorzolamide HCl-Timolol Maleat [Cosopt 22.3-6.8 mg/ml] 1 fabiano OP BID 02/18/19 Furosemide [Lasix] 20 mg GT DAILY 02/18/19 Gabapentin 300 mg GT BID 02/18/19 Hydrochlorothiazide 25 mg GT DAILY #14 tab 02/18/19 Insulin Detemir [Levemir] 44 unit SUBCU BID 02/18/19 Insulin Lispro [HumaLOG] 0 unit SUBCU AC 02/18/19 Ipratropium/Albuterol [Duoneb] 3 ml INH Q6HR 02/18/19 Lidocaine 1% 2 ml [Xylocaine] 2 ml INH Q6HR PRN 02/18/19 Loratadine 10 mg GT BEDTIME 02/18/19 Scopolamine [Transderm-Scop] 1 mg TD Q3D 02/18/19 levoFLOXacin [Levaquin] 500 mg GT DAILY #7 tab 02/18/19 Additional Instructions: the patient is a 69-year-old male presenting to emergency room secondary to respiratory difficulty and distress. This appears to been due to a mucous plug, as once this was removed the respiratory distress ceased. the patient would have been transferred back to his facility sooner however we did incidentally find moderately elevated potassium of 5.8 and a urinary tract infection. He has been started on Levaquin for urinary tract infection and will be written for 7 days of it. The patient received Kayexalate as well as diuretic doses and small fluid boluses for the hyperkalemia. Potassium has improved down to 5.3. He appears to be asymptomatic from the elevated potassium at this time and this does not appear to be his first time with an elevated potassium. I'm going to additionally write him for hydrochlorothiazide on a daily basis to hopefully help prevent recurrence of the hyperkalemia. He does need to have another potassium level checked towards the end of the week. Urine will be cultured. He does need to have nebulizer treatments at least twice daily and as needed. the patient also needs to have his skin lesions monitored and treated. ER warnings were given for any worsening.
[2019-02-18 20:04] VITALS: BP 110/65; TEMP 98.1
== END 2019-02-18 20:20 ==
LOC: ER 14:12
DX: R06.03 Acute respiratory distress (principal); T17.590A Other foreign object in bronchus causing asphyxiation, initial encounter; E87.5 Hyperkalemia; T83.510A Infection and inflammatory reaction due to cystostomy catheter, initial encounter; I44.0 Atrioventricular block, first degree; K21.9 Gastro-esophageal reflux disease without esophagitis; E11.9 Type 2 diabetes mellitus without complications; J44.9 Chronic obstructive pulmonary disease, unspecified; Z86.73 Personal history of transient ischemic attack (TIA), and cerebral infarction without residual deficits; Z99.11 Dependence on respirator [ventilator] status; Z93.1 Gastrostomy status; Z79.899 Other long term (current) drug therapy; Z79.4 Long term (current) use of insulin; Z88.5 Allergy status to narcotic agent; Z88.7 Allergy status to serum and vaccine
CPT/HCPCS: 36415; 36600; 71045; 80048; 80053; 81001; 82550; 82553; 83605; 83735; 83880; 84484; 85025; 85610; 85730; 87040; 87086; 93005; 94002; 94003; 94640; 94770; J1940; J1956; J7030; J7620

== ENCOUNTER 2019-03-01 15:10 | Emergency (ER) | payer MEDICARE, MEDICAID ==
[2019-03-01 15:33] VITALS: TEMP 95.9; O2SAT 99
--- NOTE | 2019-03-01 16:33 | RAD ---
XR CHEST 1 VIEW HISTORY: 69 years Male hypoxia COMPARISON: February 18, 2019. TECHNIQUE: Single AP view of the chest. FINDINGS: Lungs: Low lung volumes with bronchovascular crowding. This limits the exam. Blunting of the right costophrenic angle may represent small right pleural effusion. Hazy attenuation in the right lung base may represent layering effusion, atelectasis, and/or airspace disease. Heart/Mediastinum: Cardiac silhouette appears enlarged. Bones: No acute interval change observed. IMPRESSION: Right lower lung airspace disease versus atelectasis. Pneumonia would be of consideration in the appropriate setting. Possible small right pleural effusion. Suspected cardiomegaly. Electronically signed by: Len Whitten MD 03/01/2019 4:32 PM CDT
--- NOTE | 2019-03-01 16:58 | ED.PDOC ---
History of Present Illness - General Chief Complaint: Respiratory Problem Stated Complaint: sob Time Seen by Provider: 03/01/19 15:46 Source: patient, RN notes reviewed, Vital Signs reviewed, EMS notes reviewed Exam Limitations: physical impairment - pt is trached. He can answer simple questions with head nodding and Additional Information: Pt presented from the NH secondary to hypoxia and low bp. On arrival her pt is normotensive and 100% on the vent. Pt denies any pain. No cough, no fever, no n/v/d. - History of Present Illness Timing/Duration: 1/2 hour Severity: mild Activities at Onset: none Possible Cause: occasional episodes Improving Factors: nothing Worsening Factors: nothing Associated Symptoms: denies symptoms Respiratory Risk Factors: other - pt in a NH and is a vent patient. Allergies/Adverse Reactions: Allergies Codeine Allergy (Verified 03/01/19 15:33) Flu Virus Vaccine Allergy (Verified 03/01/19 15:33) Home Medications: Ambulatory Orders Ascorbic Acid [Vitamin C] 500 mg GT DAILY 09/25/17 Atropine Sulfate (Ophthalmic) [Atropine Sulfate] 2 drop SL Q4HR PRN 09/25/17 Docusate Sodium 100 mg GT BID PRN 09/25/17 Famotidine 20 mg GT DAILY 09/25/17 Folic Acid 1 mg GT DAILY 09/25/17 Polyethylene Glycol 3350 [Miralax] 17 gm GT DAILY PRN 09/25/17 Promethazine HCl 25 mg GT Q6HR PRN 09/25/17 Simethicone [Gas-X] 80 mg GT TID 09/25/17 Tramadol HCl 25 mg GT Q12HR PRN 09/25/17 Travoprost [Travatan Z] 0.004 % OP BEDTIME 09/25/17 Dorzolamide HCl-Timolol Maleat [Cosopt 22.3-6.8 mg/ml] 1 fabiano OP BID 02/18/19 Furosemide [Lasix] 20 mg GT DAILY 02/18/19 Gabapentin 300 mg GT BID 02/18/19 Hydrochlorothiazide 25 mg GT DAILY #14 tab 02/18/19 Insulin Detemir [Levemir] 44 unit SUBCU BID 02/18/19 Insulin Lispro [HumaLOG] 0 unit SUBCU AC 02/18/19 Ipratropium/Albuterol [Duoneb] 3 ml INH Q6HR 02/18/19 Lidocaine 1% 2 ml [Xylocaine] 2 ml INH Q6HR PRN 02/18/19 Loratadine 10 mg GT BEDTIME 02/18/19 Scopolamine [Transderm-Scop] 1 mg TD Q3D 02/18/19 levoFLOXacin [Levaquin] 500 mg GT DAILY #7 tab 02/18/19 Azithromycin Susp 200Mg/5Ml [Zithromax Susp 200mg/5ml] 12.5 ml PO DAILY 4 Days #50 bttl 03/01/19 Review of Systems - Review of Systems Constitutional: States: no symptoms reported EENTM: States: no symptoms reported Respiratory: States: short of breath Cardiology: States: no symptoms reported Gastrointestinal/Abdominal: States: no symptoms reported Genitourinary: States: no symptoms reported Musculoskeletal: States: no symptoms reported Skin: States: no symptoms reported Neurological: States: no symptoms reported Endocrine: States: no symptoms reported Hematologic/Lymphatic: States: no symptoms reported All other Systems: Reviewed and Negative Past Medical History (General) - Patient Medical History Hx Stroke: Yes Hx of COPD: Yes Hx Diabetes: Yes Hx Gastroesophageal Reflux: Yes - Vaccination History Hx Influenza Vaccination: No - allergy - Social History Hx Tobacco Use: Yes Hx Alcohol Use: No - Activities of Daily Living Prison[facility]Assisted Living (if applicable):: [facility] Family Medical History - Family History Father Family History: Unknown Physical Exam - Physical Exam General Appearance: Alert, Obese, Well Nourished Eyes, Ears, Nose, Throat Exam: PERRL/EOMI Neck: full range of motion, supple, other - Pt with trach in place Respiratory: chest non-tender, no respiratory distress, no accessory muscle use, decreased breath sounds, rhonchi - diffuse Cardiovascular/Chest: normal peripheral pulses, regular rate, rhythm Gastrointestinal/Abdominal: normal bowel sounds, non tender, soft, other - feeding tube in place Extremity: other - pt with bilateral hand contractures and decubitus sores on legs. Neurologic: alert, normal mood/affect Skin Exam: normal color, warm/dry Progress - Results/Orders Results/Orders: XR CHEST 1 VIEW HISTORY: 69 years Male hypoxia COMPARISON: February 18, 2019. TECHNIQUE: Single AP view of the chest. FINDINGS: Lungs: Low lung volumes with bronchovascular crowding. This limits the exam. Blunting of the right costophrenic angle may represent small right pleural effusion. Hazy attenuation in the right lung base may represent layering effusion, atelectasis, and/or airspace disease. Heart/Mediastinum: Cardiac silhouette appears enlarged. Bones: No acute interval change observed. IMPRESSION: Right lower lung airspace disease versus atelectasis. Pneumonia would be of consideration in the appropriate setting. Possible small right pleural effusion. Suspected cardiomegaly. Electronically signed by: Len Whitten MD 03/01/2019 4:32 03/01/19 15:47 ABG [Arterial Blood Gas] Stat AB.26/40.3/115/99.1%/17.3/-8.8 Improved from ABG on 09/25/17. Departure - Departure Clinical Impression: Pneumonia Qualifiers: Pneumonia type: due to unspecified organism Laterality: right Lung location: lower lobe of lung Qualified Code(s): J18.1 - Lobar pneumonia, unspecified organism Time of Disposition: 17:20 Disposition: Discharge to Home or Self Care Condition: Fair Departure Forms: ED Discharge - Pt. Copy, Patient Portal Self Enrollment Instructions: DI for Pneumonia -- Adult Referrals: KRISTINE FALL [Primary Care Provider] - 1-2 Weeks Prescriptions: Azithromycin Susp 200Mg/5Ml [Zithromax Susp 200mg/5ml] 12.5 ml PO DAILY 4 Days #50 bttl Home Medications: Ambulatory Orders Ascorbic Acid [Vitamin C] 500 mg GT DAILY 09/25/17 Atropine Sulfate (Ophthalmic) [Atropine Sulfate] 2 drop SL Q4HR PRN 09/25/17 Docusate Sodium 100 mg GT BID PRN 09/25/17 Famotidine 20 mg GT DAILY 09/25/17 Folic Acid 1 mg GT DAILY 09/25/17 Polyethylene Glycol 3350 [Miralax] 17 gm GT DAILY PRN 09/25/17 Promethazine HCl 25 mg GT Q6HR PRN 09/25/17 Simethicone [Gas-X] 80 mg GT TID 09/25/17 Tramadol HCl 25 mg GT Q12HR PRN 09/25/17 Travoprost [Travatan Z] 0.004 % OP BEDTIME 09/25/17 Dorzolamide HCl-Timolol Maleat [Cosopt 22.3-6.8 mg/ml] 1 fabiano OP BID 02/18/19 Furosemide [Lasix] 20 mg GT DAILY 02/18/19 Gabapentin 300 mg GT BID 02/18/19 Hydrochlorothiazide 25 mg GT DAILY #14 tab 02/18/19 Insulin Detemir [Levemir] 44 unit SUBCU BID 02/18/19 Insulin Lispro [HumaLOG] 0 unit SUBCU AC 02/18/19 Ipratropium/Albuterol [Duoneb] 3 ml INH Q6HR 02/18/19 Lidocaine 1% 2 ml [Xylocaine] 2 ml INH Q6HR PRN 02/18/19 Loratadine 10 mg GT BEDTIME 02/18/19 Scopolamine [Transderm-Scop] 1 mg TD Q3D 02/18/19 levoFLOXacin [Levaquin] 500 mg GT DAILY #7 tab 02/18/19 Azithromycin Susp 200Mg/5Ml [Zithromax Susp 200mg/5ml] 12.5 ml PO DAILY 4 Days #50 bttl 03/01/19
[2019-03-01 19:17] VITALS: BP 164/86
== END 2019-03-01 18:00 | disposition home or self-care (01) ==
LOC: ER 15:10
DX: J18.1 Lobar pneumonia, unspecified organism (principal); K21.9 Gastro-esophageal reflux disease without esophagitis; E11.9 Type 2 diabetes mellitus without complications; J44.9 Chronic obstructive pulmonary disease, unspecified; Z86.73 Personal history of transient ischemic attack (TIA), and cerebral infarction without residual deficits; Z87.891 Personal history of nicotine dependence; Z79.4 Long term (current) use of insulin; Z79.899 Other long term (current) drug therapy; Z88.5 Allergy status to narcotic agent; Z88.7 Allergy status to serum and vaccine; Z99.11 Dependence on respirator [ventilator] status; Z93.1 Gastrostomy status

== ENCOUNTER 2019-05-02 17:06 | Emergency (ER) | payer MEDICARE, MEDICAID ==
--- NOTE | 2019-05-02 17:32 | ED.PDOC ---
History of Present Illness - General Chief Complaint: General Stated Complaint: abnormal rbc Time Seen by Provider: 05/02/19 17:15 Source: RN notes reviewed, Vital Signs reviewed, EMS, old records Exam Limitations: clinical condition, physical impairment Additional Information: this is a 69-year-old gentleman who [facility] from [facility] with reports that he has anemia. Apparently routine labs were performed and reported to his PCP who told them to send him to the emergency room. We have not received much other information than that. Patient is vent dependent and has evidence of contractures. 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 He is able to communicate by nodding. He states that he is not in any pain currently. He was able to understand why he was sent here for further evaluation. In evaluation of his previous record I have noted that he has a history of hypertension, diabetes mellitus, history of GI bleed, coronary artery disease, and recurrent UTIs. Indwelling Ferguson catheter. No reports of fever. - History of Present Illness Allergies/Adverse Reactions: Allergies Codeine Allergy (Verified 03/01/19 15:33) Flu Virus Vaccine Allergy (Verified 03/01/19 15:33) Home Medications: Ambulatory Orders Ascorbic Acid [Vitamin C] 500 mg GT DAILY 09/25/17 Atropine Sulfate (Ophthalmic) [Atropine Sulfate] 2 drop SL Q4HR PRN 09/25/17 Docusate Sodium 100 mg GT BID PRN 09/25/17 Famotidine 20 mg GT DAILY 09/25/17 Folic Acid 1 mg GT DAILY 09/25/17 Polyethylene Glycol 3350 [Miralax] 17 gm GT DAILY PRN 09/25/17 Promethazine HCl 25 mg GT Q6HR PRN 09/25/17 Simethicone [Gas-X] 80 mg GT TID 09/25/17 Tramadol HCl 25 mg GT Q12HR PRN 09/25/17 Travoprost [Travatan Z] 0.004 % OP BEDTIME 09/25/17 Dorzolamide HCl-Timolol Maleat [Cosopt 22.3-6.8 mg/ml] 1 fabiano OP BID 02/18/19 Furosemide [Lasix] 20 mg GT DAILY 02/18/19 Gabapentin 300 mg GT BID 02/18/19 Hydrochlorothiazide 25 mg GT DAILY #14 tab 02/18/19 Insulin Detemir [Levemir] 44 unit SUBCU BID 02/18/19 Insulin Lispro [HumaLOG] 0 unit SUBCU AC 02/18/19 Ipratropium/Albuterol [Duoneb] 3 ml INH Q6HR 02/18/19 Lidocaine 1% 2 ml [Xylocaine] 2 ml INH Q6HR PRN 02/18/19 Loratadine 10 mg GT BEDTIME 02/18/19 Scopolamine [Transderm-Scop] 1 mg TD Q3D 02/18/19 Azithromycin Susp 200Mg/5Ml [Zithromax Susp 200mg/5ml] 12.5 ml PO DAILY 4 Days #50 bttl 03/01/19 Review of Systems - Review of Systems Review of Systems: 05/02/19 17:33 not obtainable Respiratory: States: other - ventilator dependent Genitourinary: States: other - chronic indwelling Ferguson catheter Musculoskeletal: States: other - muscular contractures and atrophy Hematologic/Lymphatic: States: anemia Past Medical History (General) - Patient Medical History Hx Stroke: Yes Hx of COPD: Yes Hx Diabetes: Yes Hx Gastroesophageal Reflux: Yes - Vaccination History Hx Influenza Vaccination: No - allergy - Social History Hx Tobacco Use: Yes Hx Alcohol Use: No Family Medical History - Family History Father Family History: Unknown Physical Exam - Physical Exam General Appearance: Alert, No apparent distress, Obese, Unkempt, Other - patient is very large, hygiene is poor, notable contractures of the upper and lower extremities. Neck: other - trach in place recently suctioned Respiratory: chest non-tender, lungs clear, no respiratory distress, no accessory muscle use, respiratory distress, decreased breath sounds - in the bases, accessory muscle use Cardiovascular/Chest: normal peripheral pulses, regular rate, rhythm, no gallop, no murmur Peripheral Pulses: radial,right: 1+, radial,left: 1+ Gastrointestinal/Abdominal: normal bowel sounds, non tender, soft, no organomegaly, no pulsatile mass, other - obese Rectal Exam: deferred Extremity: deformity, other - atrophic, contractures Neurologic: alert, motor weakness Skin Exam: warm/dry, other - poor hygiene, multiple skin lesions, seborrhea noted, this is generalized but most noted around the torso and extremities Progress - Progress Progress: 05/02/19 17:39 MDM; patient with multiple chronic medical conditions. the patient has history of GI bleed, hypertension, diabetes mellitus, and recurrent pneumonias. Reported to have had recent lab studies revealing anemia. No reports of obvious blood loss present. He has indwelling Ferguson catheter with history of recurrent UTIs. we'll evaluate laboratory studies and start fluid resuscitation. We'll evaluate urine as well. 05/02/19 18:40 patient is asking that he not get any more blood draws. His white blood cell count is normal. He does have a slightly lowered sodium level. One set of blood cultures even though it looks like it's not necessary. Found out that there is an on-call doctor for his primary doctor. The lab values were called to him and he just told them to send him to the emergency room. It was reported that his laboratory studies were not far off from his baseline.I have attempted to get some of these results and have not been able to yet. We'll contact the [facility] for those. 05/02/19 18:53 05/02/19 19:12 the patient does have a UTI. His sodium is a little lower than usual at 131 compared to 135 on 02/18/19. His creatinine is 1.58 compared to 1.37 on that same date. His hemoglobin is 8.1 and it was 8.6 at his last check from the [facility]. I asked the patient if he would allow us to try to get an IV once again so that we can give him a little fluid and at least 1 dose of IV antibiotics before he goes back to the [facility]. He states that that would be okay. 05/02/19 20:13 patient has been stable throughout his ER stay. His vital signs have not changed. He is normotensive and has a normal heart rate. We have attempted IV and we will now give his antibiotic IM. We'll discharge him on antibiotics to be placed in his PEG tube. We'll have them give him additional fluidsthrough the PEG tube as well. Will review MAR carefully and make further suggestions in his routine care to optimize him. Will request PCP do a follow-up in the next several days as they can better assess if he is at his baseline. 05/02/19 20:27 in evaluating the patient's MAR I have found that the doctor unified communications engineer gave orders for 2 units of packed RBCs as well as IV fluids. This hospital does not keep ventilated patients. We will attempt to transfer for further care. 05/02/19 20:[address] Celis and he agrees with transfer. - Results/Orders Results/Orders: Laboratory Tests 05/02/19 05/02/19 17:50 17:50 WBC 8.0 RBC 2.94 L Hgb 8.5 L Hct 26.4 L MCV 89.6 MCH 28.8 MCHC 32.1 L RDW 15.3 H Plt Count 228 MPV 7.4 Absolute Neuts (auto) 5.70 Absolute Lymphs (auto) 1.50 Absolute Monos (auto) 0.60 Absolute Eos (auto) 0.20 Absolute Basos (auto) 0.10 Neutrophils % 70.9 Lymphocytes % 19.3 L Monocytes % 6.8 Eosinophils % 2.0 Basophils % 1.0 Sodium 131 L Potassium 4.1 Chloride 102 Carbon Dioxide 18 L Anion Gap 15.1 BUN 38 H Creatinine 1.58 H BUN/Creatinine Ratio 24.1 H Random Glucose 97 Serum Osmolality 271.6 L Calcium 8.8 Total Bilirubin 0.6 AST 13 ALT 12 Alkaline Phosphatase 164 H Serum Total Protein 7.5 Albumin 2.6 L Globulin 4.9 H Albumin/Globulin Ratio 0.5 L IMPRESSION: 1. New mild vascular congestion noted. 2. Stable right pleural effusion/thickening. Electronically signed by: Angela Kemp MD 05/02/2019 6:29 PM [facility]PACKER Laboratory Tests 05/02/19 05/02/19 05/02/19 17:50 17:50 17:50 WBC 8.0 RBC 2.94 L Hgb 8.5 L Hct 26.4 L MCV 89.6 MCH 28.8 MCHC 32.1 L RDW 15.3 H Plt Count 228 MPV 7.4 Absolute Neuts (auto) 5.70 Absolute Lymphs (auto) 1.50 Absolute Monos (auto) 0.60 Absolute Eos (auto) 0.20 Absolute Basos (auto) 0.10 Neutrophils % 70.9 Lymphocytes % 19.3 L Monocytes % 6.8 Eosinophils % 2.0 Basophils % 1.0 Sodium 131 L Potassium 4.1 Chloride 102 Carbon Dioxide 18 L Anion Gap 15.1 BUN 38 H Creatinine 1.58 H BUN/Creatinine Ratio 24.1 H Random Glucose 97 Serum Osmolality 271.6 L Lactic Acid Calcium 8.8 Ferritin 515.1 H Total Bilirubin 0.6 AST 13 ALT 12 Alkaline Phosphatase 164 H Serum Total Protein 7.5 Albumin 2.6 L Globulin 4.9 H Albumin/Globulin Ratio 0.5 L Urine Color Urine Appearance Urine pH Ur Specific Alexander Urine Protein Urine Glucose (UA) Urine Ketones Urine Blood Urine Nitrite Urine Bilirubin Urine Urobilinogen Ur Leukocyte Esterase Urine RBC Urine WBC Ur Epithelial Cells Urine Bacteria 05/02/19 05/02/19 18:37 18:45 WBC RBC Hgb Hct MCV MCH MCHC RDW Plt Count MPV Absolute Neuts (auto) Absolute Lymphs (auto) Absolute Monos (auto) Absolute Eos (auto) Absolute Basos (auto) Neutrophils % Lymphocytes % Monocytes % Eosinophils % Basophils % Sodium Potassium Chloride Carbon Dioxide Anion Gap BUN Creatinine BUN/Creatinine Ratio Random Glucose Serum Osmolality Lactic Acid Cancelled Calcium Ferritin Total Bilirubin AST ALT Alkaline Phosphatase Serum Total Protein Albumin Globulin Albumin/Globulin Ratio Urine Color Yellow Urine Appearance Cloudy Urine pH 6.0 Ur Specific Alexander 1.010 Urine Protein 100 H Urine Glucose (UA) Negative Urine Ketones Negative Urine Blood Moderate H Urine Nitrite Positive H Urine Bilirubin Negative Urine Urobilinogen 0.2 Ur Leukocyte Esterase Large H Urine RBC 5-10 H Urine WBC 20-30 H Ur Epithelial Cells 1-3 Urine Bacteria 2+ H Departure - Departure Clinical Impression: Anemia, chronic disease, UTI (urinary tract infection) due to urinary indwelling catheter, Ventilator dependent, Dehydration, Hyponatremia, Prerenal azotemia Time of Disposition: 20:46 Disposition: Transfer to Hospital Condition: Fair Referrals: KRISTINE FALL [Primary Care Provider] - 1-2 Weeks Home Medications: Ambulatory Orders Ascorbic Acid [Vitamin C] 500 mg GT DAILY 09/25/17 Atropine Sulfate (Ophthalmic) [Atropine Sulfate] 2 drop SL Q4HR PRN 09/25/17 Docusate Sodium 100 mg GT BID PRN 09/25/17 Famotidine 20 mg GT DAILY 09/25/17 Folic Acid 1 mg GT DAILY 09/25/17 Polyethylene Glycol 3350 [Miralax] 17 gm GT DAILY PRN 09/25/17 Promethazine HCl 25 mg GT Q6HR PRN 09/25/17 Simethicone [Gas-X] 80 mg GT TID 09/25/17 Tramadol HCl 25 mg GT Q12HR PRN 09/25/17 Travoprost [Travatan Z] 0.004 % OP BEDTIME 09/25/17 Dorzolamide HCl-Timolol Maleat [Cosopt 22.3-6.8 mg/ml] 1 fabiano OP BID 02/18/19 Furosemide [Lasix] 20 mg GT DAILY 02/18/19 Gabapentin 300 mg GT BID 02/18/19 Hydrochlorothiazide 25 mg GT DAILY #14 tab 02/18/19 Insulin Detemir [Levemir] 44 unit SUBCU BID 02/18/19 Insulin Lispro [HumaLOG] 0 unit SUBCU AC 02/18/19 Ipratropium/Albuterol [Duoneb] 3 ml INH Q6HR 02/18/19 Lidocaine 1% 2 ml [Xylocaine] 2 ml INH Q6HR PRN 02/18/19 Loratadine 10 mg GT BEDTIME 02/18/19 Scopolamine [Transderm-Scop] 1 mg TD Q3D 02/18/19 Azithromycin Susp 200Mg/5Ml [Zithromax Susp 200mg/5ml] 12.5 ml PO DAILY 4 Days #50 bttl 03/01/19 Transfer to Outside Facility - Transfer Information Decision to Transfer Date: 05/02/19 Decision to Transfer Time: 20:46 Reason for Transfer: specialized care not available Accepting Provider:: Dr. Whiting Accepting Facility: [facility]
[2019-05-02] MEDS ORDERED: SODIUM CHLORIDE 0.9% 1000ML 1,000 ML IVS ONE (17:42)
--- NOTE | 2019-05-02 18:30 | RAD ---
EXAM: XR Chest, 1 View CLINICAL HISTORY: vent dependent TECHNIQUE: Frontal view of the chest. COMPARISON: 03/01/2019. FINDINGS: Limitations: None. Lungs: Unremarkable. No consolidation. Pleural space: Stable right pleural effusion/thickening. No pneumothorax. Heart: Stable cardiac enlargement. Mediastinum: Unremarkable. Bones/joints: Cervicothoracic fusion hardware intact. Vasculature: New mild vascular congestion noted. Tubes, lines and devices: Tracheostomy terminates about 7.5 cm above the bart unchanged. IMPRESSION: 1. New mild vascular congestion noted. 2. Stable right pleural effusion/thickening. Electronically signed by: Angela Kemp MD 05/02/2019 6:29 PM [employer]
[2019-05-02] MEDS ORDERED: cefTRIAXone SODIUM 1 GM VIAL IM ONE (20:11)
[2019-05-02] MEDS ORDERED: LIDOCAINE 1% 2 ML VIAL INJ ONE (20:15)
[2019-05-02 20:56] VITALS: O2SAT 99
[2019-05-02 20:58] VITALS: TEMP 95
[2019-05-02 21:12] VITALS: BP 139/57
== END 2019-05-02 21:35 | disposition short-term general hospital (02) ==
LOC: ER 17:06
DX: D63.8 Anemia in other chronic diseases classified elsewhere (principal); T83.518A Infection and inflammatory reaction due to other urinary catheter, initial encounter; E86.0 Dehydration; E87.1 Hypo-osmolality and hyponatremia; R79.89 Other specified abnormal findings of blood chemistry; E11.9 Type 2 diabetes mellitus without complications; I10 Essential (primary) hypertension; L21.9 Seborrheic dermatitis, unspecified; E66.9 Obesity, unspecified; J44.9 Chronic obstructive pulmonary disease, unspecified; K21.9 Gastro-esophageal reflux disease without esophagitis; I25.10 Atherosclerotic heart disease of native coronary artery without angina pectoris; G82.50 Quadriplegia, unspecified; Z99.11 Dependence on respirator [ventilator] status; Z87.01 Personal history of pneumonia (recurrent); Z87.440 Personal history of urinary (tract) infections; Z79.899 Other long term (current) drug therapy; Z79.4 Long term (current) use of insulin; Z88.7 Allergy status to serum and vaccine; Z88.5 Allergy status to narcotic agent; Z87.891 Personal history of nicotine dependence; Z68.38 Body mass index [BMI] 38.0-38.9, adult
CPT/HCPCS: 71045; 80053; 81001; 82728; 85025; 87040; 87086; 94002; J0696

== ENCOUNTER → 2019-06-14 | Outpatient (CLI) | payer MEDICARE, MEDICAID | LOC: GOCC 17:38 | PROVIDERS: ATTEND Internal Medicine | DX: S31.30XA Unspecified open wound of scrotum and testes, initial encounter (principal) ==

== ENCOUNTER → 2019-07-05 | Outpatient (CLI) | payer MEDICARE, MEDICAID | LOC: GOCC 18:17 | PROVIDERS: ATTEND Internal Medicine | DX: S31.30XA Unspecified open wound of scrotum and testes, initial encounter (principal) ==